=== PATIENT | male | born 2000 | race African-American/Black ===

== ENCOUNTER 2023-11-12 13:38 | Outpatient (AMB) | payer OTHER, SELFPAY ==
--- NOTE | 2023-11-12 13:37 | AM.OFFWIN_ITS ---
Intake Vital Signs 11/12/23 13:40 Height 5 ft 10 in Weight 151 lb BMI 21.7 BP 130/70 Blood Pressure Location Lt brachial Position Sitting Pulse 70 Pulse Source Pulse Oximeter Temp 97.7 F Temp Source Temporal Artery Scan Pulse Oximetry (%) 98 Oxygen Delivery Method Room Air Intake Visit Reasons: [employer]GE Burning sensation/difficulty swallowing Intake Note: pt is here today for burning sensation difficulty swallowing started 2 days Patient Tobacco Use Status: Never used Tobacco Allergies No Known Allergies Allergy (Verified 11/12/23 13:44) Do you need a note to return to daycare/school/sports/work: No HPI HPI Comments History of Present Illness Details This is a 23-year-old male with no stated past medical history presenting for evaluation of discomfort in the left side of his throat that has been present for the past 2 days. Patient states he was eating spicy tortilla chips over the past 2 days and is worried that there may be an erosion in the back of his throat. Patient denies having any fevers chills but does have discomfort when swallowing. Patient is here with his 3-week-old son and is concerned about strep throat as well [facility] Social History Patient Tobacco Use Status: Never used Tobacco Review of Systems Const All systems reviewed & are unremarkable except as noted in HPI and below Reports as per HPI, Denies chills and Denies fever(s) Eyes Reports no additional complaints ENT Denies otalgia and Reports sore throat Card Reports as per HPI Resp Reports as per HPI Physical Exam Vital Signs: Last Vital Signs Temp 97.7 F 11/12/23 13:40 Pulse 70 11/12/23 13:40 BP 130/70 11/12/23 13:40 Pulse Ox 98 11/12/23 13:40 Oxygen Delivery Method Room Air 11/12/23 13:40 BMI result Body Mass Index 21.7 Patient is afebrile. Const General: cooperative, healthy appearing, comfortable, no acute distress, alert and awake; No ill appearing Nutritional Appearance: average body habitus Orientation/consciousness: patient oriented x3 Limitations: no limitations HEENT Head: Yes normal to inspection and Yes normocephalic Ears: hearing grossly normal bilaterally, external ears normal, TM's normal bilaterally and EAC's normal General nose exam: Normal external nose present Face and sinus: Yes normal facial exam and Yes sinuses nontender Mouth: Normal oral and palatal mucosa present, tongue normal, oropharynx normal, moist mucous membranes, no audible dysphonia, no drooling and No mouth trauma Teeth and gingiva: dentition normal and gingiva normal Throat: Yes posterior oropharynx normal, Yes tonsils normal, Yes uvula midline and No postnasal drainage Eyes General: appearance normal, both eyes and all related structures Cardio Rate: regular rate Rhythm: regular rhythm Neuro General: patient oriented x3 Psych Appearance: grossly normal Mental Status: mental status grossly normal Insight: Good insight present (Psych) Judgement: Good judgement present (Psych) Results Reviewed Results Reviewed: Rapid strep is negative. Assessment & Plan Assessment & Plan (1) Acute pharyngitis: Comment: There is no evidence of a bacterial pharyngitis, retained foreign body, peritonsillar abscess, tonsil stone or trauma of the oral cavity. Patient's strep test is negative. Patient will be instructed to use ibuprofen as needed for his discomfort. Code(s): J02.9 - Acute pharyngitis, unspecified Qualifiers: Pharyngitis/tonsillitis etiology: unspecified etiology Qualified Code(s): J02.9 - Acute pharyngitis, unspecified Plan: Ibuprofen 400mg every 4-6 hours as needed for discomfort. Follow-up with ENT for any worsening symptoms. Orders: Orders AMB Rapid Strep Screen Today Z13.9 - Encounter for screening, unspecified Coding Level of Care Code New Pt Level 3 (68071) Diagnoses Acute pharyngitis, unspecified etiology J02.9 Pharyngitis/tonsillitis etiology: unspecified etiology Time Spent (min) 20
[2023-11-12 13:40] VITALS: BP 130/70; PULSE 70; TEMP 36.5; O2SAT 98; BMI 21.7
== END 2023-11-12 14:56 | disposition home or self-care (01) ==
PROVIDERS: PCP Emergency Medicine; Visit Provider Physician Assistant
DX: J02.9 Acute pharyngitis, unspecified (principal)
CPT/HCPCS: 87880; 99203

== ENCOUNTER → 2023-11-13 08:57 | Outpatient (BNV) | payer OTHER, SELFPAY | PROVIDERS: PCP Emergency Medicine; Visit Provider Physician Assistant | DX: J02.9 Acute pharyngitis, unspecified (principal) | CPT/HCPCS: 87880 ==

== ENCOUNTER → 2024-10-21 10:58 | Outpatient (BNVA) | payer OTHER, SELFPAY | PROVIDERS: PCP Emergency Medicine ==

== ENCOUNTER 2025-01-20 11:37 | Outpatient (AMB) | payer OTHER, SELFPAY ==
--- NOTE | 2025-01-20 11:43 | MHC.OFFWIV ---
Intake Vital Signs 01/20/25 11:45 Height 5 ft 10 in Weight 147 lb BMI 21.1 BP 122/80 Blood Pressure Location Lt brachial Position Sitting Pulse 72 Pulse Source Pulse Oximeter Pulse Oximetry (%) 98 Oxygen Delivery Method Room Air Intake Visit Reasons: EP- Rt ankle sprain?? Intake Note: Patient here for right ankle pain that started today. Patient Tobacco Use Status: Never used Tobacco Allergies No Known Allergies Allergy (Verified 01/20/25 11:47) Do you need a note to return to daycare/school/sports/work: Yes HPI HPI Comments History of Present Illness Details Graham canchola presents to office with R lateral ankle pain He can walk on it but makes worse He said worse with ankle dorsal flexion and pressure on R lateral ankle States he was walking down the stairs and rolled R ankle Occured 24 hours ago He tried tylenol He iced last night with some relief Hx of R ankle fx in 2018 Pt states 0/10 PFSH Social History Patient Tobacco Use Status: Never used Tobacco Review of Systems Const Denies chills and Denies fever(s) Card Denies chest pain Resp Denies cough Musc Reports arthralgias, Reports joint swelling and Denies numbness Skin/Breast Reports skin swelling Neuro Denies numbness and Denies paresthesias Physical Exam Vital Signs: Last Vital Signs Pulse 72 01/20/25 11:45 BP 122/80 01/20/25 11:45 Pulse Ox 98 01/20/25 11:45 Oxygen Delivery Method Room Air 01/20/25 11:45 BMI result Body Mass Index 21.1 General: Non-toxic, NAD. Speaking full sentences. Skin: Warm dry throughout Moderate R lateral ankle edema without erythema/warmth over malleoli. Slight edema/ecchymosis over dorsal aspect R foot near lateral tarsal bones Eye: EOMI Cardiac: DP pulse intact RLE MSK: No ttp RLE ankle at medial malleoli, achilles, metatarsal bones 1-5 or digits on foot. + full dorsal/plantar flexion ankle. + ttp RLE lateral malloli. Neurology: Alert. No aphasia or facial droop. Gait without abnormality Psych: Good mood and affect Assessment & Plan Assessment & Plan (1) Ankle sprain: Code(s): S93.409A - Sprain of unspecified ligament of unspecified ankle, initial encounter Qualifiers: Encounter type: initial encounter Involved ligament of ankle: anterior talofibular ligament Laterality: right Qualified Code(s): S93.491A - Sprain of other ligament of right ankle, initial encounter Plan: Pt seen and evaluated Xray R ankle ordered: I viewed and saw no obvious fx Rest, ice and elevate Tylenol/Motrin Work note given At time of d/c pt gave verbal understanding and had no additional questions at that time Orders: Orders XR ankle RT min 3V Today S93.409A - Sprain of unspecified ligament of unspecified ankle, initial encounter Coding Level of Care Code Est Pt Level 3 (48646) Diagnoses Sprain of anterior talofibular ligament of right ankle, initial encounter S93.491A Encounter type: initial encounter Involved ligament of ankle: anterior talofibular ligament Laterality: right
[2025-01-20 11:45] VITALS: BP 122/80; PULSE 72; O2SAT 98; BMI 21.1
--- OUTSIDE RECORDS SUMMARY | 2025-01-20 13:04 | XMS_ITS | Clinical Summary ---
Author Organization [facility] it Address [address] [place] [address] Care Team Providers Care Licensed Occupational Therapy Assistant Name Role Phone Unavailable Primary Care Provider Unavailabl e Social History Tobacco Use Types Packs/Day Years Used Date Smoking Tobacco: Never Assessed Sex and Gender Information Value Date Recorded Sex Assigned at Not on file Legal Sex Male 9:14 PM EST Gender Identity Not on file Sexual Orientation Not on file Plan of Treatment Health Maintenance Due Date Last Done Comments HPV Vaccines (1 - Male 3-dos e series) 2016 Meningococcal B Vaccine (1 o f 2 - Standard) 2017 DTaP,Tdap,and Td Vaccines (1 - Tdap) 2020 Hepatitis B Vaccines (1 of 3 - 19+ 3-dose series) 2020 COVID-19 Vaccine (1 - 2023-2 5 season) 2024 Influenza Vaccine (Season Ended) 2025 HIB Vaccines Aged Out No longer eligi ble based on patient's age to complete this topic Hepatitis A Vaccines Aged Out No long er eligible based on patient's age to complete this topic IPV Vaccines Aged Out No longer eligi ble based on patient's age to complete this topic MMR Vaccines Aged Out No longer eligi ble based on patient's age to complete this topic Meningococcal ACWY Vaccine Aged Out N o longer eligible based on patient's age to complete this topic Pneumococcal Vaccine: Pediat rics (0 to 5 Years) and At-Risk Patients (6 to 64 Years) Aged Out No longer eligible b ased on patient's age to complete this topic RSV Immunization Patients Un mildred 20 months Aged Out No longer eligible b ased on patient's age to complete this topic Varicella Vaccines Aged Out No longer eligible based on patient's age to complete this topic
== END 2025-01-20 12:27 | disposition home or self-care (01) ==
PROVIDERS: PCP Emergency Medicine; Visit Provider Physician Assistant
DX: S93.491A Sprain of other ligament of right ankle, initial encounter (principal)

== ENCOUNTER 2025-01-20 11:37 | Outpatient (REF) | payer OTHER, SELFPAY ==
--- NOTE | ~2025-01-20 | XR_ITS ---
EXAMINATION: XR ANKLE, RIGHT CLINICAL INFORMATION: S93.409A - Sprain of unspecified ligament of unspecified ankle, initial ... COMPARISON: None available. TECHNIQUE: AP, lateral, and mortise views of the right ankle. FINDINGS: No fracture, dislocation, or suspicious bone lesion. Normal bone mineralization. Normal alignment. The mortise is intact. The talar dome appears normal. Joint spaces are preserved. No significant arthropathy. Soft tissues appear normal. XR/XR ankle RT min 3V IMPRESSION: 1. No acute or soft tissue bony abnormalities. Electronically signed by: Tarik Anderson MD 01/20/2025 12:33 PM EDT
== END 2025-01-20 11:38 | disposition home or self-care (01) ==
LOC: HO.HMGCX 11:37
PROVIDERS: PCP Emergency Medicine; Visit Provider Physician Assistant
DX: S93.491A Sprain of other ligament of right ankle, initial encounter (principal)
CPT/HCPCS: 73610

== ENCOUNTER → 2025-01-20 12:08 | Outpatient (BNV) | payer OTHER, SELFPAY | PROVIDERS: PCP Emergency Medicine; Visit Provider Radiology Diagnostic Radiology | DX: S93.401A Sprain of unspecified ligament of right ankle, initial encounter (principal) | CPT/HCPCS: 73610 ==